=== PATIENT | male | born 1985 | race Caucasian/White ===

== ENCOUNTER 2016-12-25 00:12 | Emergency (ER) | payer OTHER ==
[~2016-12-25] VITALS: Ht 162.6 cm; Wt 62.5 kg
[2016-12-25 00:17] VITALS: Ht 162.6 cm; Wt 62.5 kg
[2016-12-25 01:01] VITALS: BP 130/81; PULSE 81; RESP 18; TEMP 98.1
--- NOTE | 2016-12-25 01:32 | ERD ---
ER Documentation Chief Complaint Date/Time DATE: 12/25/16 TIME: 01:30 Chief Complaint diarrhea after taking cephalexin today,denies abd pain HPI This is a 31-year-old male who presents to the emergency room for evaluation of abdominal cramping and diarrhea. The patient did state that he is lactose intolerant and states that he recently had his wisdom teeth removed and is on Keflex, and [place]. He states that he can eat solid food and has been eating yogurt and ice cream. He came to the ER for evaluation of his abdominal cramping and mild bloating ROS All systems reviewed and are negative except as per history of present illness. Allergies Allergies: Coded Allergies: No Known Allergy (Unverified , 12/25/16) PMhx/Soc Medical and Surgical Hx: pt denies Medical Hx, pt denies Surgical Hx History of Surgery: No Anesthesia Reaction: No Hx Neurological Disorder: No Hx Respiratory Disorders: No Hx Cardiac Disorders: No Hx Psychiatric Problems: No Hx Miscellaneous Medical Probl: No Hx Alcohol Use: No Hx Substance Use: No Hx Tobacco Use: No Smoking Status: Never smoker Physical Exam Vitals Vital Signs Date Time Temp Pulse Resp B/P Pulse Ox O2 Delivery O2 Flow Rate FiO2 12/25/16 01:01 98.1 81 18 130/81 98 Room Air 12/25/16 00:17 97.4 82 18 137/85 98 Physical Exam Const: No acute distress Head: [Atraumatic] Eyes: [Normal Conjunctiva] ENT: [Normal External Ears, Nose and Mouth.] Neck: [Full range of motion. No meningismus.] Resp: [Clear to auscultation bilaterally] Cardio: [Regular rate and rhythm, no murmurs] Abd: [Soft, non tender, non distended. Normal bowel sounds] Skin: [No petechiae or rashes] Back: [No midline or flank tenderness] Ext: [No cyanosis, or edema] Neur: [Awake and alert] Psych: [Normal Mood and Affect] Procedures/MDM X-ray Abdomen 1V Interpreted by me: Free Air: [None] Bowel Gas: [Nonspecific] Soft Tissue: [Normal] This 31-year-old male presents to the ER for evaluation of abdominal cramping. The patient does have a history of lactose intolerance and did take milk and yogurt. He is on Keflex for extraction of his wisdom teeth. He states that his no car is not working and I would like a prescription for Motrin. Patient had a KUB done. He has no signs of obstruction. He will be discharged home at this time with a prescription for Motrin and instructions to not ingest dairy Departure Diagnosis: Primary Impression: Diarrhea Additional Impression: Abdominal bloating Condition: Stable JADA COOLEY DO Dec 25, 2016 01:32
[2016-12-25] MEDS ORDERED: IBUP800T25 PO (01:33)
--- NOTE | 2016-12-25 01:35 | RADRPT ---
PROCEDURE: ABDOMINAL - 2 VIEWS CLINICAL INDICATION: 31-year-old male with abdominal pain. TECHNIQUE: AP supine views of the abdomen were obtained. The images reviewed on a PACS workstat ion. COMPARISON: None. FINDINGS: The lung bases are unremarkable. There is no evidence for bowel obstruction. There are no abnormal calcifications overlying the urinary tracts. The osseous structures are unremarkable. IMPRESSION: Unremarkable abdomen radiographs. .Daniel Orozco MD, MD Date Time Electronically viewed and signed by .Daniel Orozco MD, on 12/25/2016 01:34 .M/
== END 2016-12-25 01:52 | disposition home or self-care (01) ==
LOC: FTE 00:12 → E/R 01:52
DX: R19.7 Diarrhea, unspecified (principal); R14.0 Abdominal distension (gaseous)
CPT/HCPCS: 74000; Z7502

== ENCOUNTER 2017-06-10 23:39 | Emergency (ER) | END 2017-06-11 03:30 | disposition left against medical advice (07) ==

== ENCOUNTER 2018-01-07 22:02 | Emergency (ER) | END 2018-01-08 04:19 | disposition home or self-care (01) ==

== ENCOUNTER 2018-04-06 05:06 | Inpatient (IN) | END 2018-04-11 13:25 | disposition home or self-care (01) | DRG 660 ==

== ENCOUNTER 2018-04-16 04:30 | Emergency (ER) | END 2018-04-16 09:57 | disposition home or self-care (01) ==

== ENCOUNTER 2018-04-21 10:11 | Emergency (ER) | END 2018-04-21 12:11 | disposition home or self-care (01) ==

== ENCOUNTER 2018-08-01 23:06 | Emergency (ER) | payer OTHER ==
[~2018-08-01] VITALS: Ht 160 cm; Wt 60.4 kg
[~2018-08-01 23:06] MED LIST: CIPR500T4 PO; CIPR750T3 PO; CYCL10TA7 PO; HYDR-3980 PO; IBUP-1542 PO; IBUP-1545 PO; ONDA4TAB8 PO; TAMS-14 PO; TRAM50TA PO
[2018-08-01 23:16] VITALS: Ht 160 cm; Wt 60.4 kg
[2018-08-02] MEDS ORDERED: ONDANSETRON (ODT) 4 MG TAB ODT STA (01:49)
[2018-08-02] MEDS ORDERED: OMEP20CA16 PO (03:07)
--- NOTE | 2018-08-02 03:50 | ERD ---
ER Documentation Chief Complaint Chief Complaint C/O GENERALIZED BACK PAIN W/ NAUSEA FOR MONTHS HPI 32-year-old male with history of right-sided ureterolithiasis requiring stent in March. Since the patient has had a multitude of different complaints including body aches and pains. His pain is located all over his body but most ly in his back and upper back. He states that he is fatigued when he is working after several hours. He has not followed up with Dr. Samuels at this point. He is also noting some worsening left flank pain but he denies any colicky pain dysuria hematuria urgency or frequency. Patient also notes chronic reflux symptoms that are unchanged. He is concerned and would like laboratory testing and renal ultrasound to make sure that his kidneys are functioning. ROS All systems reviewed and are negative except as per history of present illness. Medications Home Meds Active Scripts Cyclobenzaprine Hcl* (Cyclobenzaprine Hcl*) 10 Mg Tablet, 10 MG PO TID PRN for MUSCLE SPASMS, #15 TAB Prov:LAWANDA BEDOYA 06/07/18 Ibuprofen* (Motrin*) 600 Mg Tab, 600 MG PO Q6H PRN for PAIN AND OR ELEVATED TEMP, #30 TAB Prov:LAWANDA BEDOYA 06/07/18 Tamsulosin Hcl* (Flomax*) 0.4 Mg Cap.er.24h, 0.4 MG PO QPM, #5 CAP Prov:PUNEET EL DO 04/16/18 Reported Medications Omeprazole* (Omeprazole*) 20 Mg Capsule.dr, 20 MG PO DAILY, #30 CAP 08/02/18 Discontinued Reported Medications Ibuprofen* (Ibuprofen*) 800 Mg Tab, 800 MG PO Q6H PRN for PAIN, TAB 04/16/18 Discontinued Scripts Ondansetron Hcl* (Zofran*) 4 Mg Tablet, 4 MG PO Q8H PRN for NAUSEA AND/OR VOMITING, #30 TAB Prov:LAWANDA BEDOYA 06/07/18 Ciprofloxacin Hcl* (Ciprofloxacin Hcl*) 500 Mg Tablet, 500 MG PO BID for 5 Days, TAB Prov:PUNEET EL DO 04/16/18 Tramadol Hcl* (Ultram*) 50 Mg Tablet, 50 MG PO Q8 for Pain, #10 TAB Prov:RENETTA BERRY NP 04/11/18 Ciprofloxacin Hcl* (Ciprofloxacin Hcl*) 750 Mg Tablet, 750 MG PO BID for 7 Days, #14 TAB Prov:RENETTA BERRY BRIMMING MACHINE OPERATOR 04/11/18 Hydrocodone/Acetaminophen ([place] 10-325 Tablet) 1 Each Tablet, 1 TAB PO Q6H PRN for PAIN, #20 TAB Prov:SKYRIVAS DICKINSONA MY SánchezSkyla BRIMMING MACHINE OPERATOR 01/08/18 Allergies Allergies: Coded Allergies: ciprofloxacin (Verified Allergy, Unknown, 08/02/18) phenazopyridine (Unverified Allergy, Unknown, 08/02/18) dizziness, nausea PMhx/Soc History of Surgery: Yes (KIDNEY STONE 04/09/18) Anesthesia Reaction: No Hx Neurological Disorder: No Hx Respiratory Disorders: No Hx Cardiac Disorders: No Hx Psychiatric Problems: No Hx Miscellaneous Medical Probl: Yes (KIDNEY STONES ) Hx Alcohol Use: No Hx Substance Use: No Hx Tobacco Use: No Smoking Status: Never smoker FmHx Family History: No diabetes Physical Exam Vitals Vital Signs Date Temp Pulse Resp B/P (MAP) Pulse Ox O2 O2 Flow FiO2 Time Delivery Rate 08/02/18 97.9 78 19 122/91 99 Room Air 01:42 (101) 08/01/18 97.2 84 18 138/92 99 23:16 (107) Physical Exam General: Well developed, well nourished, no acute distress Head: Normocephalic, atraumatic. Eyes: Pupils equally reactive, EOM intact ENT: Moist mucous membranes Neck: Supple, no lymphadenopathy Respiratory: Lungs clear bilaterally, no distress Cardiovascular: RRR, no murmurs, rubs, or gallops Abdominal: Soft, non-tender, non-distended, no peritoneal signs Back: No CVAT : Deferred MSK: No edema, no unilateral swelling, 5/5 strength Neurologic: Alert and oriented, moving all extremities, normal speech, no focal weakness, no cerebellar signs Skin: No rash Psych: Normal mood Result Diagram: 08/02/1815508/02/18155 Results 24 hrs Laboratory Tests Test 08/02/18 01:56 White Blood Count 7.3 10^3/ul Red Blood Count 4.94 10^6/ul Hemoglobin 15.2 g/dl Hematocrit 45.1 % Mean Corpuscular Volume 91.3 fl Mean Corpuscular Hemoglobin 30.8 pg Mean Corpuscular Hemoglobin Concent 33.7 g/dl Red Cell Distribution Width 12.2 % Platelet Count 214 10^3/UL Mean Platelet Volume 10.5 fl Immature Granulocytes % 0.300 % Neutrophils % 64.2 % Lymphocytes % 26.0 % Monocytes % 8.2 % Eosinophils % 1.0 % Basophils % 0.3 % Nucleated Red Blood Cells % 0.0 /100WBC Immature Granulocytes # 0.020 10^3/ul Neutrophils # 4.7 10^3/ul Lymphocytes # 1.9 10^3/ul Monocytes # 0.6 10^3/ul Eosinophils # 0.1 10^3/ul Basophils # 0.0 10^3/ul Nucleated Red Blood Cells # 0.0 10^3/ul Urine Color YELLOW Urine Clarity CLOUDY Urine pH 7.0 Urine Specific [place] 1.017 Urine Ketones NEGATIVE mg/dL Urine Nitrite NEGATIVE mg/dL Urine Bilirubin NEGATIVE mg/dL Urine Urobilinogen NEGATIVE mg/dL Urine Leukocyte Esterase NEGATIVE [place]/ul Urine Microscopic RBC 2 /HPF Urine Microscopic WBC 5 /HPF Urine Amorphous Crystals FEW /HPF Urine Bacteria FEW /HPF Urine Hemoglobin NEGATIVE mg/dL Urine Glucose NEGATIVE mg/dL Urine Total Protein NEGATIVE mg/dl Sodium Level 144 mmol/L Potassium Level 4.1 mmol/L Chloride Level 107 mmol/L Carbon Dioxide Level 28 mmol/L Anion Gap 9 Blood Urea Nitrogen 22 mg/dl Creatinine 0.80 mg/dl Est Glomerular Filtrat Rate mL/min > 60 mL/min Glucose Level 99 mg/dl Calcium Level 9.8 mg/dl Total Bilirubin 0.8 mg/dl Direct Bilirubin 0.00 mg/dl Indirect Bilirubin 0.8 mg/dl Aspartate Amino Transf (AST/SGOT) 19 IU/L Alanine Aminotransferase (ALT/SGPT) 14 IU/L Alkaline Phosphatase 74 IU/L Total Protein 7.7 g/dl Albumin 4.6 g/dl Globulin 3.10 g/dl Albumin/Globulin Ratio 1.48 Lipase 86 U/L Current Medications Medications Dose Sig/Rebecca Start Time Status Last (Trade) Ordered Route PRN Stop Time Admin Dose Reason Admin Ondansetron 4 mg ONCE STAT 08/02/18 DC 08/02/18 HCl (Zofran ODT 01:49 02:23 Odt) 08/02/18 01:50 Procedures/MDM EKG, MONITORS, & DIAGNOSTIC IMAGING: Renal ultrasound: Normal ultrasound per radiologist read LAB INTERPRETATION: I reviewed the laboratory testing and it shows no evidence of acute process MEDICAL DECISION MAKING: The patient has a multitude of different complaints over the last several months. His clinical exam is unremarkable. The patient's symptoms are not consistent with renal colic. His back pain is nonspecific. The patient's low back pain is unlikely related to serious etiology. The patient exhibits no clinical signs or symptoms and has no history or risk factors to suggest cauda equina, cord compression, epidural abscess, epidural hematoma, acute aortic aneurysm or dissection. The patient's reflux symptoms are consistent with GERD. The patient has a benign abdominal exam. There are no signs or symptoms for cardiac etiology. The patient's symptoms are improved with NSAIDs and muscle relaxant medication. Muscular skeletal etiology is most likely. The patient also appears to be anxious, could be contributing. I believe it would be appropriate to check basic blood work to rule out renal dysfunction, malignancy. Renal ultrasound will be appropriate. Patient was advised that he should follow-up with his primary care physician and neurologist. ER COURSE: * Patient continues to be well-appearing without acute process. * Laboratory testing and diagnostic imaging are unrevealing. The patient can be safely discharged home with primary care follow-up and urology follow-up. CONSULTATION: None DISPOSITION PLAN: The patient does not have an identifiable emergent medical condition that warrants inpatient hospitalization at this time. The patient is deemed safe for discharge with outpatient follow-up. We discussed follow up with the patient's primary care doctor within 24 to 48 hours as needed. We also discussed return to the emergency room for worsening symptoms or worsening condition. Outpatient referral: Urology Discharge Medications: Continue outpatient medications Departure Diagnosis: Primary Impression: Myalgia Additional Impression: Nausea Condition: Stable NO WILLIS MD Aug 02, 2018 03:50
[2018-08-02 04:15] VITALS: BP 125/81; PULSE 69; RESP 18
== END 2018-08-02 04:15 | disposition home or self-care (01) ==
LOC: E/R 23:06
DX: M79.10 Myalgia, unspecified site (principal); R11.0 Nausea
CPT/HCPCS: 36415; 76775; 80053; 81001; 83690; 85025; Z7502; Z7610

== ENCOUNTER 2018-09-23 15:28 | Emergency (ER) | payer OTHER ==
[~2018-09-23] VITALS: Ht 162.6 cm; Wt 58.2 kg
[~2018-09-23 15:28] MED LIST changes: -CIPR500T4 PO; -CIPR750T3 PO; -HYDR-3980 PO; -IBUP-1545 PO; +OMEP20CA16 PO; -ONDA4TAB8 PO; -TRAM50TA PO
[2018-09-23 15:54] VITALS: Ht 162.6 cm; Wt 58.2 kg
--- NOTE | 2018-09-23 20:05 | ERD ---
ER Documentation Chief Complaint Chief Complaint blood in stool since yesterday "feel like i have a cut" HPI 32-year-old male with no reported past medical history, status post kidney stone s stone removal who presents with complaint of bloody stool. Patient states yesterday he noticed he had a quite bulky bowel movement. After such bowel movement noticed small amount of blood as he wiped. This a.m. with a similar episode. States since he had his kidney stone removed has been eating a lot of fiber. Denies history of hemorrhoids or family history of GI disease. He otherwise is without complaint denies any fevers, chills, nausea, vomiting, diarrhea, abdominal pain, urinary symptoms. Time examination patient is nontoxic-appearing and stable. ROS All systems reviewed and are negative except as per history of present illness. Medications Home Meds Active Scripts Cyclobenzaprine Hcl* (Cyclobenzaprine Hcl*) 10 Mg Tablet, 10 MG PO TID PRN for MUSCLE SPASMS, #15 TAB Prov:PASILABAN,KLAR F 06/07/18 Ibuprofen* (Motrin*) 600 Mg Tab, 600 MG PO Q6H PRN for PAIN AND OR ELEVATED TEMP, #30 TAB Prov:PASILABAN,KLAR F 06/07/18 Tamsulosin Hcl* (Flomax*) 0.4 Mg Cap.er.24h, 0.4 MG PO QPM, #5 CAP Prov:PUNEET EL DO 04/16/18 Reported Medications Omeprazole* (Omeprazole*) 20 Mg Capsule.dr, 20 MG PO DAILY, #30 CAP 08/02/18 Allergies Allergies: Coded Allergies: ciprofloxacin (Verified Allergy, Unknown, 08/02/18) phenazopyridine (Unverified Allergy, Unknown, 08/02/18) dizziness, nausea PMhx/Soc History of Surgery: Yes (KIDNEY STONE 04/09/18) Anesthesia Reaction: No Hx Neurological Disorder: No Hx Respiratory Disorders: No Hx Cardiac Disorders: No Hx Psychiatric Problems: No Hx Miscellaneous Medical Probl: Yes (KIDNEY STONES ) Hx Alcohol Use: No Hx Substance Use: No Hx Tobacco Use: No Smoking Status: Never smoker FmHx Family History: No diabetes, No coronary disease, No other Physical Exam Vitals Vital Signs Date Temp Pulse Resp B/P (MAP) Pulse Ox O2 O2 Flow FiO2 Time Delivery Rate 09/23/18 97.8 88 18 139/96 96 15:54 (110) Physical Exam I have reviewed the triage vital signs. Const: Well nourished, well developed, appears stated age Eyes: PERRL, no conjunctival injection HENT: NCAT, Neck supple without meningismus CV: RRR, Warm, well-perfused extremities RESP: CTAB, Unlabored respiratory effort GI: soft, non-tender, non-distended, no masses, anus without any signs of bleeding, normal rectal tone, no blood on glove, no irritation or areas of erythema, no visible lacerations MSK: No gross deformities appreciated Skin: Warm, dry. No rashes Neuro: grossly non focal Psych: Appropriate mood and affect. Procedures/MDM 32-year-old male who presents with 2 episodes of rectal bleeding. Symptoms likely secondary to irritation in the setting of increase fiber diet without drinking adequate fluid. I have low suspicion for acute pathology leading to rectal bleeding as patient without risk factors and young and otherwise relatively healthy. His examination is unremarkable. There is a small chance he may have internal hemorrhoids which case patient has been advised to follow- up with his PMD for possible referral to specialist if symptoms do not abide. She is hemodynamically stable and I feel labs or imaging are not warranted per history and exam. Strict return precautions explained in detail the patient. DISPOSITION PLAN: We discussed follow up with the patient's primary care doctor within 24 to 48 hours. Patient counseled regarding my diagnostic impression and care plan. Prior to discharge all questions answered. Pt agrees with treatment plan and understands strict return precautions. Precautionary instructions provided including instructions to return to the ER if not improving or for any worsening or changing symptoms or concerns. Disclaimer: Inadvertent spelling and grammatical errors are likely due to EHR/dictation software use and do not reflect on the overall quality of patient care. Also, please note that the electronic time recorded on this note does not necessarily reflect the actual time of the patient encounter. Departure Diagnosis: Primary Impression: Stool bloody Condition: Stable Patient Instructions: Rectal Bleed, Stable Additional Instructions: Call your primary care doctor TOMORROW for an appointment during the next 2-3 days.See the doctor sooner or return here if your condition worsens before your appointment time. ALL WATT PA-C September 23, 2018 20:05
== END 2018-09-23 20:00 | disposition home or self-care (01) ==
LOC: FTE 15:28
DX: K92.1 Melena (principal)
CPT/HCPCS: 99283

== ENCOUNTER 2019-01-11 23:48 | Emergency (ER) | payer OTHER ==
[~2019-01-11] VITALS: Ht 170.2 cm; Wt 60.3 kg
[~2019-01-11 23:48] MED LIST changes: +IBUP800T48 PO; +METH750T93 PO
[2019-01-11 23:52] VITALS: BP 134/82; PULSE 85; RESP 20; Ht 170.2 cm; Wt 60.3 kg
[2019-01-12] MEDS ORDERED: METHOCARBAMOL 750 MG TAB PO ONE (02:30)
[2019-01-12] MEDS ORDERED: IBUPROFEN 800 MG TAB PO ONE (02:30)
== END 2019-01-12 03:26 | disposition home or self-care (01) ==
LOC: FTE 23:48
DX: M54.2 Cervicalgia (principal); M54.5 Low back pain
CPT/HCPCS: 72040; 72072; 72100; Z7502; Z7610

== ENCOUNTER 2019-02-03 12:06 | Emergency (ER) | payer OTHER ==
[~2019-02-03] VITALS: Ht 160 cm; Wt 59.9 kg
[~2019-02-03 12:06] MED LIST changes: +CEPH-443 PO; +MED4DP PO; +NAPR-985 PO; -OMEP20CA16 PO; +OMEP20CA17 PO; +ONDA4TAB14 PO; +SUCR1TAB56 PO
[2019-02-03 12:07] VITALS: BP 178/93; PULSE 94; RESP 17; Ht 160 cm; Wt 59.9 kg
[2019-02-03] MEDS ORDERED: KETOROLAC 30 MG INJ IM STA (14:30)
== END 2019-02-03 15:05 | disposition home or self-care (01) ==
LOC: FTE 12:06
DX: R10.9 Unspecified abdominal pain (principal)
CPT/HCPCS: 81003; 96372; J1885; Z7502